=== PATIENT | male | born 1960 | race Caucasian/White ===

== ENCOUNTER 2017-07-05 07:26 | Inpatient (IN) | payer SELFPAY ==
[~2017-07-05] VITALS: Ht 175.3 cm; Wt 93.0 kg
[2017-07-05] VITALS (7 sets, daily range): BP systolic 98–129; BP diastolic 59–84
--- OUTSIDE RECORDS SUMMARY | 2017-07-05 07:31 | XMS REPORT ---
Author LILIYA Contreras [facility] eClinicalWorks Address Unknown Phone Unavailable Care Team Providers Care Boiler Engineer Name Role Phone LILIYA OLIVER CP Unavailable Allergies, Adverse Reactions, Alerts Substance Reaction Event Type N.K.D.A. Info Not Available Non Drug Allergy Problems Problem Type Condition Code Onset Dates Condition Status Problem Elevated blood sugar R73.09 Active Problem Excessive anger R45.4 Active Problem Neuropathy G62.9 Active Assessment Fatigue R53.83 Active Assessment Neuropathy G62.9 Active Problem Fatigue R53.83 Active Assessment Excessive anger R45.4 Active Medications Medication Code System Code Instructions Start Date End Date Status Dosage Gabapentin [facility] [address]-37 300 MG Orally at bedtime Jan 15, 2015 1 capsule Celexa [facility] [address]-12 20 MG Orally Once a day Jan 29, 2015 1 tablet Procedures Procedure Coding System Code Date Office Visit, Est Pt., Level 4 CPT-4 19097 Feb 26, 2015 Vital Signs Date/Time: Feb 26, 2015 Temperature 98.9 F Weight 205.6 lbs Height 70 in BMI 29.50 Index Blood Pressure Diastolic 80 mmHg Blood Pressure Systolic 150 mmHg Cardiac Monitoring Heart Rate 88 bpm Results No Known Results Summary Purpose eClinicalWorks Submission
--- OUTSIDE RECORDS SUMMARY | 2017-07-05 07:31 | XMS REPORT ---
Author Author LILIYA OLIVER Organization eClinicalWorks Address Unknown Phone Unavailable Care Team Providers Care Motion Graphics Designer Name Role Phone LILIYA OLIVER CP Unavailable Allergies No Known Allergies Problems Problem Type Condition ICD-9 Code Onset Dates Condition Status Problem Acute sinusitis, unspecified 461.9 Active Problem Cough 786.2 Active Problem Other malaise and fatigue 780.79 Active Assessment Elevated blood sugar 790.29 Active Problem Excessive anger 312.00 Active Problem Elevated blood pressure 796.2 Active Problem Depression 311 Active Problem Abdominal pain, generalized 789.07 Active Problem Open wound of knee, leg (except thigh), and ankle, without mention of complication 891.0 Active Problem Diarrhea 787.91 Active Problem Nausea with vomiting 787.01 Active Medications No Known Medications Results No Known Results Summary Purpose eClinicalWorks Submission
--- OUTSIDE RECORDS SUMMARY | 2017-07-05 07:31 | XMS REPORT ---
Author Author JEAN MARIE JOSEPH [facility] eClinicalWorks Address Unknown Phone Unavailable Care Team Providers Care Fill Plant Operator Name Role Phone JEAN MARIE JOSEPH CP Unavailable Allergies, Adverse Reactions, Alerts Substance Reaction Event Type N.K.D.A. Info Not Available Non Drug Allergy Problems Problem Type Condition Code Onset Dates Condition Status Problem Elevated blood sugar R73.09 Active Problem Excessive anger R45.4 Active Problem Neuropathy G62.9 Active Assessment Arm pain M79.603 Active Problem Fatigue R53.83 Active Assessment Allergy to poison janes Z91.09 Active Medications Medication Code System Code Instructions Start Date End Date Status Dosage Gabapentin [facility] [address]-98 300 MG Orally at bedtime Jan 15, 2015 1 capsule Procedures Procedure Coding System Code Date THER/PROPH/DIAG INJ, SC/IM CPT-4 77210 August 05, 2015 Office Visit, Est Pt., Level 3 CPT-4 40692 August 05, 2015 SOLUMEDROL (UP TO 125 MG) CPT-4 J2930 August 05, 2015 Vital Signs Date/Time: August 05, 2015 Temperature 97.8 F Weight 195.4 lbs Height 70 in BMI 28.03 Index Blood Pressure Diastolic 94 mmHg Blood Pressure Systolic 138 mmHg Cardiac Monitoring Heart Rate 84 bpm Results No Known Results Summary Purpose eClinicalWorks Submission
--- OUTSIDE RECORDS SUMMARY | 2017-07-05 07:31 | XMS REPORT ---
Author Author LILIYA OLIVER Organization [facility] Address [address] [place] [address] Care Team Providers Care Trouble Shooting Mechanic Name Role Phone LILIYA OLIVER Unavailable PROBLEMS Type Condition ICD9-CM Code BXY59-ZV Code Onset Dates Condition Status SNOMED Code Problem Fatigue R53.83 Active 43957350 Problem Excessive anger R45.4 Active 751213506 Problem Tension headache G44.209 Active 116189168 Problem Biceps muscle tear, right, subsequent encounter S46.111D Active 510781312 Problem Neuropathy G62.9 Active 761251555 Problem Elevated blood sugar R73.09 Active 68130593 Problem Other chronic pain G89.29 Active 31001925 Problem Pain in right shoulder M25.511 Active 97558428 ALLERGIES No Known Allergies SOCIAL HISTORY Never Assessed PLAN OF CARE Activity Details Follow Up 2 Weeks, prn Reason: Pending Test CBC VITAL SIGNS Height 70 in 2016-07-07 Weight 200.8 lbs 2016-07-07 Temperature 98.4 degrees Fahrenheit 2016-07-07 Heart Rate 92 bpm 2016-07-07 Respiratory Rate 22 2016-07-07 BMI 28.81 kg/m2 2016-07-07 Blood pressure systolic 114 mmHg 2016-07-07 Blood pressure diastolic 78 mmHg 2016-07-07 MEDICATIONS Medication Instructions Dosage Frequency Start Date End Date Duration Status Tamiflu 75 MG Orally Twice a day 1 capsule 12h Jun, 5 day(s) Active RESULTS Name Result Date Reference Range INFLUENZA A & B (IN HOUSE) 2016-07-07 INFLUENZA A Negative INFLUENZA B Positive Control + Lot # [id number] Exp date 2018-04-22 PROCEDURES Procedure Date Ordered Result Body Site INFLUENZA ASSAY W/OPTIC July 07, 2016 COMPLETE CBC W/AUTO DIFF WBC July 07, 2016 IMMUNIZATIONS No Known Immunizations MEDICAL (GENERAL) HISTORY Type Description Date Surgical History reattached middle finger on left hand Hospitalization History poison janes as a child
--- OUTSIDE RECORDS SUMMARY | 2017-07-05 07:31 | XMS REPORT ---
Author LILIYA Contreras Organization eClinicalWorks Address Unknown Phone Unavailable Care Team Providers Care Environmental Officer Name Role Phone LILIYA OLIVER CP Unavailable Allergies, Adverse Reactions, Alerts Substance Reaction Event Type N.K.D.A. Info Not Available Non Drug Allergy Problems Problem Type Condition Code Onset Dates Condition Status Problem Elevated blood sugar R73.09 Active Problem Excessive anger R45.4 Active Problem Neuropathy G62.9 Active Assessment Neuropathy G62.9 Active Assessment Excessive anger R45.4 Active Problem Fatigue R53.83 Active Assessment Biceps muscle tear S46.119A Active Medications Medication Code System Code Instructions Start Date End Date Status Dosage Tramadol HCl [facility] [address]-52 50 mg Orally every 6 hrs August 24, 2015 1 tablet as needed Celexa [facility] [address]-86 20 MG Orally Once a day Jan 29, 2015 1 tablet Gabapentin [facility] [address]-10 300 MG Orally at bedtime Jan 15, 2015 1 capsule Procedures Procedure Coding System Code Date Office Visit, Est Pt., Level 3 CPT-4 12822 August 24, 2015 Vital Signs Date/Time: August 24, 2015 Temperature 97.6 F Weight 193.2 lbs Height 70 in BMI 27.72 Index Blood Pressure Diastolic 94 mmHg Blood Pressure Systolic 120 mmHg Cardiac Monitoring Heart Rate 100 bpm Results No Known Results Summary Purpose eClinicalWorks Submission
--- OUTSIDE RECORDS SUMMARY | 2017-07-05 07:31 | XMS REPORT ---
Author LILIYA Contreras Organization eClinicalWorks Address Unknown Phone Unavailable Care Team Providers Care Carbide Grinder Name Role Phone LILIYA OLIVER CP Unavailable Allergies, Adverse Reactions, Alerts Substance Reaction Event Type N.K.D.A. Info Not Available Non Drug Allergy Problems Problem Type Condition ICD-9 Code Onset Dates Condition Status Problem Acute sinusitis, unspecified 461.9 Active Problem Cough 786.2 Active Problem Other malaise and fatigue 780.79 Active Problem Excessive anger 312.00 Active Problem Elevated blood pressure 796.2 Active Problem Depression 311 Active Problem Abdominal pain, generalized 789.07 Active Problem Open wound of knee, leg (except thigh), and ankle, without mention of complication 891.0 Active Problem Diarrhea 787.91 Active Problem Nausea with vomiting 787.01 Active Assessment Elevated blood pressure 796.2 Active Assessment Excessive anger 312.00 Active Assessment Depression 311 Active Assessment Other malaise and fatigue 780.79 Active Medications Medication Code System Code Instructions Start Date End Date Status Dosage Amitriptyline HCl [facility] [address]-64 50 MG Orally Once a day Jan 15, 2015 1 tablet Gabapentin [facility] [address]-00 300 MG Orally at bedtime Jan 15, 2015 1 capsule Procedures Procedure Coding System Code Date COMPREHEN METABOLIC PANEL CPT-4 12829 Jan 15, 2015 Office Visit, New Pt., Level 4 CPT-4 22071 Jan 15, 2015 COMPLETE CBC W/AUTO DIFF WBC CPT-4 29422 Jan 15, 2015 VENIPUNCT, ROUTINE* CPT-4 12308 Jan 15, 2015 Vital Signs Date/Time: Jan 15, 2015 Temperature 97.2 F Weight 200.9 lbs Height 70 in BMI 28.82 Index Blood Pressure Diastolic 98 mmHg Blood Pressure Systolic 150 mmHg Cardiac Monitoring Heart Rate 90 bpm Results Name Result Date Reference Range Unit Abnormality Flag ROUTINE VENIPUNCTURE CBC Summary Purpose eClinicalWorks Submission
--- OUTSIDE RECORDS SUMMARY | 2017-07-05 07:32 | XMS REPORT ---
Author LIILYA Contreras Organization eClinicalWorks Address Unknown Phone Unavailable Care Team Providers Care Carrier Associate Name Role Phone LILIYA OLIVER Unavailable Allergies No Known Allergies Problems Problem [...]
--- OUTSIDE RECORDS SUMMARY | 2017-07-05 07:32 | XMS REPORT ---
Author LILIYA Contreras [facility] eClinicalWorks Address Unknown Phone Unavailable Care Team Providers Care Maintenance Operator Name Role Phone LILIYA OLIVER CP Unavailable Allergies, Adverse Reactions, Alerts Substance Reaction Event Type N.K.D.A. Info Not Available Non Drug Allergy Problems Problem Type Condition Code Onset Dates Condition Status Assessment Bilious vomiting with nausea R11.14 Active Assessment Acute upper respiratory infection, unspecified J06.9 Active Assessment Other viral agents as the cause of diseases classified elsewhere B97.89 Active Assessment Diarrhea, unspecified type R19.7 Active Problem Pain in right shoulder M25.511 Active Problem Other chronic pain G89.29 Active Problem Biceps muscle tear, right, subsequent encounter S46.111D Active Problem Excessive anger R45.4 Active Problem Fatigue R53.83 Active Problem Neuropathy G62.9 Active Problem Elevated blood sugar R73.09 Active Medications Medication Code System Code Instructions Start Date End Date Status Dosage PredniSONE [facility] [address]-89 10 mg Orally twice a day Feb 02, 2016Jan 1 tablet Zofran [facility] [address]-60 4 MG Orally 3 times a day Feb 02, 2016 1 tablets Procedures Procedure Coding System Code Date Office Visit, Est Pt., Level 4 CPT-4 84705 Feb 02, 2016 Vital Signs Date/Time: Feb 02, 2016 Cardiac Monitoring Heart Rate 80 bpm Weight 216 lbs Height 70 in BMI 30.99 Index Blood Pressure Diastolic 80 mmHg Blood Pressure Systolic 146 mmHg Results No Known Results Summary Purpose eClinicalWorks Submission
--- OUTSIDE RECORDS SUMMARY | 2017-07-05 07:32 | XMS REPORT | Continuity of Care Document ---
Author Author [facility] Address Unknown Phone Unavailable Allergies Active Description Code Type Severity Reaction Onset Reported/Identified Relationship to Patient Clinical Status Yes No Known Drug Allergies [id number] Drug Allergy Unknown N/A 12/25/2012 Medications There is no data. Problems Date Dx Coded Attending Type Code Diagnosis Diagnosed By 12/25/2012 LORENZO KNIGHT, KRISHNA Orozco Ot 780.4 DIZZINESS AND GIDDINESS 10/05/2013 RICARDA NIETO APRN R 787.01 NAUSEA WITH VOMITING 10/05/2013 RICARDA NIETO APRN R 787.91 DIARRHEA 10/05/2013 JEAN MARIE JOSEPH APRN S 787.01 NAUSEA WITH VOMITING 10/05/2013 CAMPOS JOSEPH APRNA S 787.91 DIARRHEA 10/05/2013 787.01 NAUSEA WITH VOMITING 10/05/2013 787.91 DIARRHEA 10/05/2013 RAYNE NIETO APRNINA R 787.01 NAUSEA WITH VOMITING 10/05/2013 EMILIA BANKS RICARDA R 787.91 DIARRHEA 10/09/2013 JEAN MARIE JOSEPH APRN S 789.07 ABDOMINAL PAIN GENERALIZED 10/09/2013 789.07 ABDOMINAL PAIN GENERALIZED 10/09/2013 EMILIA BANKS RICARDA R 789.07 ABDOMINAL PAIN GENERALIZED 12/11/2013 891.0 OPEN WOUND OF KNEE LEG (EXCEPT THIGH) AND ANKLE WITHOUT COMPLICATION 12/11/2013 EMILIA BANKS RICARDA R 891.0 OPEN WOUND OF KNEE LEG (EXCEPT THIGH) AND ANKLE WITHOUT COMPLICATION 05/16/2014 RICARDA NIETO APRN R 461.9 SINUSITIS ACUTE 05/16/2014 RICARDA NIETO APRN R 780.79 FATIGUE 05/16/2014 RICARDA NIETO APRN R 786.2 COUGH 08/31/2015 LILIYA OLIVER Ot M67.922 UNSPECIFIED DISORDER OF SYNOVIUM AND TEN 09/07/2015 LILIYA OLIVER Ot M67.922 UNSPECIFIED DISORDER OF SYNOVIUM AND TEN Procedures Code [place] [address] ROUTINE VENIPUNCTURE 10/09/2013 64790 CMP 10/09/2013 7050624 GFR CALC (RESULT ONLY) 10/09/2013 87643 CBC 10/09/2013 76887 LIPASE 10/09/2013 Results There is no data. Encounters ACCT No. Visit Date/Time Discharge Status Pt. Type Provider Facility Loc./Unit Complaint [id number] 05/16/2014 15:47:00 05/16/2014 23:59:59 CLS Outpatient RICARDA NIETO APRN [id number] 10/09/2013 11:11:00 10/09/2013 23:59:59 CLS Outpatient JEAN MARIE JOSEPH APRN [id number] 10/05/2013 12:15:00 10/05/2013 23:59:59 CLS Outpatient RICARDA NIETO APRN [id number] 12/11/2013 11:52:00 Document Registration [id number] 08/28/2015 14:25:00 08/28/2015 23:59:59 CLS Outpatient LILIYA OLIVERP [facility] RAD [id number] 12/11/2013 13:26:00 12/11/2013 23:59:59 CLS Outpatient [id number] 12/25/2012 12:08:00 12/25/2012 15:50:00 DIS Emergency LORENZO KNIGHT, KRISHNA Orozco [facility] ER
[2017-07-05] MEDS ORDERED: NS IV 1000 ML 1,000 ML IV SCH ×2 (07:43→08:53)
[2017-07-05] MEDS ORDERED: RT-ALBUTEROL/IPRATROPIUM 3 ML (DUONEB) VIAL INH ONE (07:45)
[2017-07-05 08:12] LABS: BASOPHILS # (AUTO) 0.1 10^3/uL (0.0-0.1); BASOPHILS % (AUTO) 0 % (0-10); EOSINOPHILS % (AUTO) 0 % (0-10); HEMATOCRIT 39 % (40-54); HEMOGLOBIN 13.5 G/DL (13.3-17.7); LYMPHOCYTES # (AUTO) 2.2 X 10^3 (1.0-4.0); LYMPHOCYTES % (AUTO) 9 % (12-44); MEAN CORPUSCULAR HEMOGLOBIN 29 PG (25-34); MEAN CORPUSCULAR HGB CONC 35 G/DL (32-36); MEAN CORPUSCULAR VOLUME 85 FL (80-99); MEAN PLATELET VOLUME 9.7 FL (7.4-10.4); MONOCYTES # (AUTO) 1.3 X 10^3 (0.0-1.0); MONOCYTES % (AUTO) 5 % (0-12); NEUTROPHILS # (AUTO) 19.9 X 10^3 (1.8-7.8); NEUTROPHILS % (AUTO) 85 % (42-75); PLATELET COUNT 305 10^3/uL (130-400); RED BLOOD COUNT 4.59 10^6/uL (4.35-5.85); RED CELL DISTRIBUTION WIDTH 14.6 % (10.0-14.5); WHITE BLOOD COUNT 23.5 10^3/uL (4.3-11.0)
[2017-07-05 08:33] LABS: ALANINE AMINOTRANSFERASE 47 U/L (0-55); ALKALINE PHOSPHATASE 127 U/L (40-136); BILIRUBIN,TOTAL 0.9 MG/DL (0.1-1.0); BUN/CREATININE RATIO 16; CALCIUM 9.6 MG/DL (8.5-10.1); CARBON DIOXIDE 25 MMOL/L (21-32); CHLORIDE 101 MMOL/L (98-107); CREATININE SERUM 1.04 MG/DL (0.60-1.30); GFR ESTIMATED > 60; GLUCOSE 149 MG/DL (70-105); SODIUM 134 MMOL/L (135-145); TOTAL PROTEIN 6.9 GM/DL (6.4-8.2)
[2017-07-05 08:38] LABS: BAND NEUTROPHILS 19 %; BASOPHILS % (MANUAL) 0 %; EOSINOPHILS % (MANUAL) 0 %; LYMPHOCYTES % (MANUAL) 10 %; MONOCYTES % (MANUAL) 3 %; NEUTROPHILS % (MANUAL) 68 %; RBC MORPH NORMAL
--- NOTE | 2017-07-05 08:42 | ED General ---
General Chief Complaint: Cough/Cold/Flu Symptoms Stated Complaint: COUGH/N/V Nursing Triage Note: AMB TO ROOM REPORTS FOR 1 WEEK HAS HAD COUGH CONGESTION WITH BODY ACHES. Nursing Sepsis Screen: No Definite Risk Source of Information: Patient, Family Exam Limitations: No Limitations History of Present Illness Date Seen by Provider: Jul 05, 2017 Time Seen by Provider: 07:33 Initial Comments This 56-year-old gentleman presents to the emergency room with complaints of cough, shortness of breath, myalgias, vomiting, and chills for a week. Oral intake has been decreased. He typically smokes about 2 packs of cigarettes per day. He is a patient of the [facility]. He states he presently feels like he did during a previous episode of pneumonia. He has tried multiple ptdk-fip-kojiynp medications without much benefit. Allergies and Home Medications Allergies Coded Allergies: No Known Drug Allergies (Unverified , 12/25/12) Patient Home Medication List Home Medication List Reviewed: Yes Constitutional: see HPI EENTM: no symptoms reported Respiratory: see HPI Cardiovascular: no symptoms reported Gastrointestinal: see HPI Genitourinary: no symptoms reported Musculoskeletal: no symptoms reported Skin: no symptoms reported Psychiatric/Neurological: No Symptoms Reported Hematologic/Lymphatic: No Symptoms Reported Past Zeohjnl-Nciqzz-Fdqlfw Hx Patient Social History Alcohol Use: Denies Use Recreational Drug Use: No Smoking Status: Current Everyday Smoker Recent Foreign Travel: No Contact w/Someone Who Travel: No Recent Infectious Disease Expo: No Surgeries History of Surgeries: No Respiratory History of Respiratory Disorde: Yes (tobaccoism) Respiratory Disorders: Pneumonia Cardiovascular History of Cardiac Disorders: No Neurological History of Neurological Disord: No Reproductive System Hx Reproductive Disorders: No Gastrointestinal History of Gastrointestinal Di: No Musculoskeletal History of Musculoskeletal Dis: No Endocrine History of Endocrine Disorders: No HEENT History of HEENT Disorders: No Cancer History of Cancer: No Psychosocial History of Psychiatric Problem: Yes Behavioral Health Disorders: Anxiety Physical Exam-Suspected Sepsis Physical Exam Vital Signs Vital Signs - First Documented 07/05/17 07:30 Temp 95.5 Pulse 110 Resp 18 B/P (MAP) 123/97 (106) Pulse Ox 93 O2 Delivery Room Air Capillary Refill : Less Than 3 Seconds Blood Pressure Mean: 96 General Appearance: WD/WN, Mild Distress HEENT: PERRL/EOMI, TMs Normal, Normal ENT Inspection, Other (oropharynx somewhat dry) Neck: Normal Inspection Respiratory: No Accessory Muscle Use, No Respiratory Distress, Crackles ( bilateral bases, right greater than left), Wheezing, Other (decreased air movement) Cardiovascular: No Edema, No Murmur, Tachycardia Gastrointestinal: Normal Bowel Sounds, Non Tender, Soft Extremity: Normal Inspection, No Pedal Edema Neurologic/Psychiatric: Alert, Oriented x3, No Motor/Sensory Deficits, Normal Mood/Affect, back seam stitcher II-XII Norm as Tested Skin: normal color, warm/dry Focused Exam Evaluation Lactate Level Laboratory Tests 07/05/17 08:00: Lactic Acid Level 1.81 Lactic Acid Level Laboratory Tests Test 07/05/17 08:00 Lactic Acid Level 1.81 MMOL/L (0.50-2.00) Progress/Results/Core Measures Suspected Sepsis Recent Fever Within 48 Hours: No Infection Criteria Present: Suspected New Infection New/Unexplained Altered Menta: No Sepsis Screen: No Definite Risk Sepsis Diagnosis: SIRS Temperature:95.5 Pulse: 100 Respiratory Rate: 18 Laboratory Tests 07/05/17 08:00: White Blood Count 23.5H Blood Pressure 127 /80 Mean: 96 Laboratory Tests 07/05/17 08:00: Lactic Acid Level 1.81 Laboratory Tests 07/05/17 08:00: Creatinine 1.04, Platelet Count 305, Total Bilirubin 0.9 Results/Orders Lab Results Laboratory Tests Test 07/05/17 08:00 Range/Units White Blood Count 23.5 H 4.3-11.0 10^3/uL Red Blood Count 4.59 4.35-5.85 10^6/uL Hemoglobin 13.5 13.3-17.7 G/DL Hematocrit 39 L 40-54 % Mean Corpuscular Volume 85 80-99 FL Mean Corpuscular Hemoglobin 29 25-34 PG Mean Corpuscular Hemoglobin Concent 35 32-36 G/DL Red Cell Distribution Width 14.6 H 10.0-14.5 % Platelet Count 305 130-400 10^3/uL Mean Platelet Volume 9.7 7.4-10.4 FL Neutrophils (%) (Auto) 85 H 42-75 % Lymphocytes (%) (Auto) 9 L 12-44 % Monocytes (%) (Auto) 5 0-12 % Eosinophils (%) (Auto) 0 0-10 % Basophils (%) (Auto) 0 0-10 % Neutrophils # (Auto) 19.9 H 1.8-7.8 X 10^3 Lymphocytes # (Auto) 2.2 1.0-4.0 X 10^3 Monocytes # (Auto) 1.3 H 0.0-1.0 X 10^3 Eosinophils # (Auto) 0.0 0.0-0.3 10^3/uL Basophils # (Auto) 0.1 0.0-0.1 10^3/uL Neutrophils % (Manual) 68 % Lymphocytes % (Manual) 10 % Monocytes % (Manual) 3 % Eosinophils % (Manual) 0 % Basophils % (Manual) 0 % Band Neutrophils 19 % Blood Morphology Comment NORMAL Sodium Level 134 L 135-145 MMOL/L Potassium Level 4.0 3.6-5.0 MMOL/L Chloride Level 101 98-107 MMOL/L Carbon Dioxide Level 25 21-32 MMOL/L Anion Gap 8 5-14 MMOL/L Blood Urea Nitrogen 17 7-18 MG/DL Creatinine 1.04 0.60-1.30 MG/DL Estimat Glomerular Filtration Rate > 60 BUN/Creatinine Ratio 16 Glucose Level 149 H 70-105 MG/DL Lactic Acid Level 1.81 0.50-2.00 MMOL/L Calcium Level 9.6 8.5-10.1 MG/DL Total Bilirubin 0.9 0.1-1.0 MG/DL Aspartate Amino Transf (AST/SGOT) 25 5-34 U/L Alanine Aminotransferase (ALT/SGPT) 47 0-55 U/L Alkaline Phosphatase 127 40-136 U/L Total Protein 6.9 6.4-8.2 GM/DL Albumin 3.0 L 3.2-4.5 GM/DL Micro Results Microbiology 07/05/17 Influenza Types A,B Antigen (PRANEETH) - Final, Complete My Orders Orders - JOSE GARRETT MD Cbc With Automated Diff (07/05/17 07:43) Comprehensive Metabolic Panel (07/05/17 07:43) Blood Culture (07/05/17 07:43) Influenza A And B Antigens (07/05/17 07:43) Chest Pa/Lat (2 View) (07/05/17 07:43) Albuterol/Ipra Inhalation Soln (Duoneb I (07/05/17 07:45) Lactic Acid Analyzer (07/05/17 07:43) Svn Sm Volume Nebulizer Rt-Rfs (07/05/17 07:43) Saline Lock/Iv-Start (07/05/17 07:43) Ns Iv 1000 Ml (Sodium Chloride 0.9%) (07/05/17 07:43) Manual Differential (07/05/17 08:00) Ceftriaxone Injection (Rocephin Injectio (07/05/17 08:45) Ketorolac Injection (Toradol Injection) (07/05/17 08:45) Saline Lock/Iv-Start (07/05/17 08:53) Ns Iv 1000 Ml (Sodium Chloride 0.9%) (07/05/17 08:53) Medications Given in ED Current Medications Medications Dose Ordered Sig/Debby Route Start Time Stop Time Status Last Admin Dose Admin Albuterol/ Ipratropium 3 ml ONCE ONCE INH 07/05/17 07:45 07/05/17 07:48 DC 07/05/17 07:54 3 ML Ceftriaxone Sodium 1000 mg/ Sodium Chloride 100 ml @ 200 mls/hr ONCE ONCE IV 07/05/17 08:45 07/05/17 09:14 07/05/17 08:55 200 MLS/HR Ketorolac Tromethamine 30 mg ONCE ONCE IVP 07/05/17 08:45 07/05/17 08:46 DC 07/05/17 08:52 30 MG Vital Signs/I&O Vital Sign - Last 12Hours 07/05/17 07/05/17 07/05/17 07:30 07:54 08:39 Temp 95.5 Pulse 110 100 Resp 18 B/P (MAP) 123/97 (106) 127/80 Pulse Ox 93 92 100 O2 Delivery Room Air Room Air Nasal Cannula Capillary Refill : Less Than 3 Seconds Blood Pressure Mean: 96 Progress Note : Progress Note Patient was given a DuoNeb treatment. Chest x-ray revealed right-sided pneumonia. Patient meets sepsis criteria with tachycardia and leukocytosis. He was started on Rocephin after blood cultures and lactic acid were drawn. 2 L of normal saline were infused in the ER. Diagnostic Imaging Diagonstic Imaging: Xray Plain Films/CT/US/NM/MRI: chest Comments Chest x-ray viewed by me and report reviewed. See report below: NAME: BRINDA WOOPRAVEEN Quiros [facility] REC#: [id number] PT STATUS: REG ER : 1960 PHYSICIAN: JOSE GARRETT MD ADMIT DATE: 07/05/17/ER Draft Date of Exam:07/05/17 CHEST PA/LAT (2 VIEW) Indication: Cough, fever and chills. Time of exam: 8:45 AM Comparison: No prior studies are available for comparison. Findings: The heart size is normal. There is airspace infiltrate in the right perihilar region as well as the right lung base consistent with pneumonia. The left lung is clear. The vascularity is normal. No effusion is detected. There is no pneumothorax. Impression: Right perihilar and right basilar pneumonia. Dictated on workstation # [id number] Dict: 07/05/17 0844 Trans: 07/05/17 0846 CVB [id number] Interpreted by: VEDA FLORES MD Departure Communication (Admissions) Time/Spoke to Admitting Phy: 08:[address] Gayla Cifuentes Impression Impression: Primary Impression: Sepsis Qualified Codes: A41.9 - Sepsis, unspecified organism Additional Impressions: Right lower lobe pneumonia Qualified Codes: J18.1 - Lobar pneumonia, unspecified organism Bronchospasm Disposition: ADMITTED INPATIENT Condition: Improved Admissions Decision to Admit Reason: Admit from ER (General) Decision to Admit/Date: Jul 05, 2017 Time/Decision to Admit Time: 08:35 Departure-Patient Inst. Referrals: MOOK EMERY DO (PCP) Primary Care Physician LILIYA OLIVER (Family) Primary Care Physician JOSE GARRETT MD Jul 05, 2017 08:42
[2017-07-05] MEDS ORDERED: KETOROLAC 30 MG/ML VIAL IVP ONE (08:45)
[2017-07-05] MEDS ORDERED: cefTRIAXone INJECTION 1,000 MG in NS (IVPB) 100 ML IV ONE (08:45)
--- NOTE | 2017-07-05 08:47 | Diagnostic Imaging Report ---
Indication: Cough, fever and chills. Time of exam: 8:45 AM Comparison: No prior studies are available for comparison. Findings: The heart size is normal. There is airspace infiltrate in the right perihilar region as well as the right lung base consistent with pneumonia. The left lung is clear. The vascularity is normal. No effusion is detected. There is no pneumothorax. Impression: Right perihilar and right basilar pneumonia. Dictated by: Dictated on workstation # [id number]
--- OUTSIDE RECORDS SUMMARY | 2017-07-05 10:54 | XMS REPORT | Continuity of Care Document ---
Author Author [facility] Address Unknown Phone Unavailable Allergies Active Description Code Type Severity Reaction Onset Reported/Identified Relationship to Patient Clinical Status Yes No Known Drug Allergies [id number] Drug Allergy Unknown N/A 12/25/2012 Medications There [...] Procedures Code [place] [address] ROUTINE VENIPUNCTURE 10/09/2013 65212 CMP 10/09/2013 [id number] GFR CALC (RESULT ONLY) 10/09/2013 32741 CBC 10/09/2013 08759 LIPASE 10/09/2013 Results There is no data. Encounters ACCT No. Visit Date/Time Discharge Status Pt. Type Provider Facility Loc./Unit Complaint [id number] 05/16/2014 15:47:00 05/16/2014 23:59:59 CLS Outpatient RICARDA NIETO APRN [id number] 10/09/2013 11:11:00 10/09/2013 23:59:59 CLS Outpatient JEAN MARIE JOSEPH APRN [id number] 10/05/2013 12:15:00 10/05/2013 23:59:59 CLS Outpatient RICARDA NIETO APRN [id number] 12/11/2013 11:52:00 Document Registration [id number] 08/28/2015 14:25:00 08/28/2015 23:59:59 CLS Outpatient LILIYA OLIVERP [facility] RAD [id number] 12/11/2013 13:26:00 12/11/2013 23:59:59 CLS Outpatient [id number] 12/25/2012 12:08:00 12/25/2012 15:50:00 DIS Emergency LORENZO KNIGHT, KRISHNA Orozco [facility] ER
[2017-07-05] MEDS ORDERED: AZITHROMYCIN 500 MG/NS 250 ML IVPB IV NR ×2 (11:29)
[2017-07-05] MEDS ORDERED: NICOTINE 21 MG (NICODERM) PATCH TD PRN (11:30)
[2017-07-05] MEDS ORDERED: RT-ALBUTEROL SULF 2.5 MG/3 ML PRE-MIX VIAL INH PRN (11:45)
[2017-07-05] MEDS: NS IV 1000 ML 1,000 ML IV SCH ×2 (11:50→21:22)
[2017-07-05] MEDS ORDERED: INFLUENZA TRIvalent 2017-2018 0.5 ML/45 MCG SYR IM ONE (13:30)
[2017-07-05] MEDS: ACETAMINOPHEN 500 MG TAB (TYLENOL) PO PRN ×2 (14:28→22:15)
--- NOTE | 2017-07-05 14:46 | History & Physicial (CHS) ---
HPI History of Present Illness: 56 yo gentleman presented to ER with complaints of shortness of breath worsening over the past week. Patient states that his SOB worsened to the extent that he was unable to walk across [facility] room without coughing and gasping for air. He is a long-term heavy smoker - smokes about 2 packs per day. He last saw Rosalinda Wall at the clinic for his primary care but hasn't been there for a check up lately. He has used inhalers in bryn past but did not use them this time. He has had associated weakness and myalgias, denies fevers, denies sputum production. No runny nose or upper respiratory symptoms. 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 Source: patient Exam Limitations: no limitations Date seen by provider: Jul 05, 2017 Time Seen by Provider: 10:00 Attending Physician Harrison Cifuentes MD PCP Consuelo Conley DO Consult Date of Admission Jul 05, 2017 at 8:55 am Home Medications Home Medications Reviewed patient Home Medication Reconciliation Form Allergies Coded Allergies: No Known Drug Allergies (Unverified , 12/25/12) ZLS-Dhrvmo-Yyocnr Hx Patient Social History Alcohol Use: Denies Use Recreational Drug Use: No Smoking Status: Current Everyday Smoker Type Used: Cigarettes Recent Foreign Travel: No Contact w/other who traveled: No Recent Infectious Disease Expo: No Physical Abuse Screen: No Sexual Abuse: No Review of Systems (CHC) Constitutional: no symptoms reported All Other Systems Reviewed Negative Unless Noted: Yes Physical Exam-(CHC) Physical Exam Vital Signs VS - Last 72 Hours, by Label 07/05/17 07/05/17 07/05/17 07/05/17 11:00 11:05 11:20 12:00 Temp 97.9 99.0 Pulse 95 85 101 Resp 20 18 20 B/P (MAP) 109/65 (80) 119/77 118/76 (90) Pulse Ox 98 95 97 O2 Delivery Nasal Cannula Room Air Nasal Cannula Nasal Cannula O2 Flow Rate 2.00 2.00 2.00 07/05/17 07/05/17 07/05/17 07/05/17 13:00 14:00 15:00 15:10 Temp 99.1 99.0 99.0 Pulse 105 107 Resp 18 18 B/P (MAP) 102/59 (73) 98/60 (73) Pulse Ox 95 94 92 O2 Delivery Nasal Cannula Nasal Cannula Room Air O2 Flow Rate 2.00 2.00 07/05/17 07/05/17 07/05/17 07/05/17 16:00 18:41 20:04 21:00 Temp 98.8 98.9 Pulse 104 94 Resp 20 18 B/P (MAP) 108/60 (76) 115/66 (82) Pulse Ox 94 94 95 O2 Delivery Nasal Cannula Room Air Nasal Cannula Room Air O2 Flow Rate 2.00 2.00 07/05/17 07/06/17 07/06/17 07/06/17 22:27 00:51 04:03 07:57 Temp 98.3 98.0 Pulse 88 87 Resp 19 17 B/P (MAP) 131/73 (92) 134/71 (92) Pulse Ox 95 94 95 O2 Delivery Room Air Nasal Cannula Nasal Cannula Room Air O2 Flow Rate 2.00 2.00 07/06/17 07/06/17 09:00 14:32 Temp 96.9 Pulse 94 Resp 18 B/P (MAP) 144/88 (106) Pulse Ox 95 O2 Delivery Room Air Room Air Capillary Refill : Less Than 3 Seconds General Appearance: WD/WN, mild distress (gasping for air when talking) HEENT: PERRL/EOMI, normal ENT inspection, pharynx normal Respiratory: chest non-tender, respiratory distress, decreased breath sounds, accessory muscle use, rhonchi, wheezing, expiration, inspiration Cardiovascular: regular rate, rhythm, no edema, no gallop, no JVD, no murmur Gastrointestinal: normal bowel sounds, non tender, soft, no organomegaly, no pulsatile mass Back: normal inspection, no CVA tenderness, no vertebral tenderness Extremities: normal range of motion, non-tender, normal inspection, no pedal edema, no calf tenderness, normal capillary refill 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 Assessment & Plan ACUTE BACTERIAL EXACERBATION OF CHRONIC BRONCHITIS RIGHT-SIDED PNEUMONIA SEPSIS HYPOXIA TOBACCO ABUSE ADMISSION: Patient will be admitted to the 4th floor and receive IV antibiotics , solumedrol, MAT protocol with aggressive pulmonary toilet, and oxygen. I did educate him that his cigarette use has played a large role in how sick he is today. We will monitor his vitals over bryn next 24h to see what measures we can wean based on his progress. I also encouraged early ambulation as tolerated. Clinical Quality Measures DVT/VTE Risk/Contraindication: Risk Factor Score Per Nursin RFS Level Per Nursing on Admit: 2=Moderate Copy Copies To 1: HARRISON FIELDS APRN, MD Jul 05, 2017 14:46
[2017-07-05] MEDS: RT-ALBUTEROL/IPRATROPIUM 3 ML (DUONEB) VIAL INH SCH ×3 (15:10→22:26)
[2017-07-06 00:51] VITALS: BP 131/73
[2017-07-06] MEDS: RT-ALBUTEROL/IPRATROPIUM 3 ML (DUONEB) VIAL INH SCH ×3 (02:00→11:44)
[2017-07-06 04:03] VITALS: BP 134/71
[2017-07-06] MEDS: NS IV 1000 ML 1,000 ML IV SCH ×2 (04:12→08:25)
[2017-07-06] MEDS: ACETAMINOPHEN 500 MG TAB (TYLENOL) PO PRN (08:26)
[2017-07-06] MEDS ORDERED: AZITHROMYCIN 250 MG TAB (ZITHROMAX) PO SCH (09:00)
[2017-07-06] MEDS ORDERED: cefTRIAXone 1 GM/NS 100 ML IVPB IV SCH ×2 (09:00)
[2017-07-06] MEDS ORDERED: MELA5CAP PO (10:19)
[2017-07-06] MEDS ORDERED: NAPR220T66 PO (10:19)
[2017-07-06 11:21] LABS: BASOPHILS # (AUTO) 0.1 10^3/uL (0.0-0.1); BASOPHILS % (AUTO) 0 % (0-10); EOSINOPHILS # (AUTO) 0.1 10^3/uL (0.0-0.3); EOSINOPHILS % (AUTO) 1 % (0-10); HEMATOCRIT 35 % (40-54); HEMOGLOBIN 11.9 G/DL (13.3-17.7); LYMPHOCYTES # (AUTO) 2.2 X 10^3 (1.0-4.0); LYMPHOCYTES % (AUTO) 13 % (12-44); MEAN CORPUSCULAR HEMOGLOBIN 30 PG (25-34); MEAN CORPUSCULAR HGB CONC 34 G/DL (32-36); MEAN CORPUSCULAR VOLUME 86 FL (80-99); MEAN PLATELET VOLUME 9.6 FL (7.4-10.4); MONOCYTES # (AUTO) 0.8 X 10^3 (0.0-1.0); MONOCYTES % (AUTO) 5 % (0-12); NEUTROPHILS # (AUTO) 13.4 X 10^3 (1.8-7.8); NEUTROPHILS % (AUTO) 81 % (42-75); PLATELET COUNT 305 10^3/uL (130-400); RED BLOOD COUNT 4.03 10^6/uL (4.35-5.85); WHITE BLOOD COUNT 16.6 10^3/uL (4.3-11.0)
[2017-07-06 11:47] LABS: BUN/CREATININE RATIO 18; CALCIUM 8.3 MG/DL (8.5-10.1); CARBON DIOXIDE 23 MMOL/L (21-32); CHLORIDE 109 MMOL/L (98-107); CREATININE SERUM 0.77 MG/DL (0.60-1.30); GFR ESTIMATED > 60; GLUCOSE 246 MG/DL (70-105); POTASSIUM 4.2 MMOL/L (3.6-5.0); SODIUM 138 MMOL/L (135-145)
[2017-07-06 11:51] LABS: NEUTROPHILS % (MANUAL) 72 %
[2017-07-06 11:52] LABS: ANISOCYTOSIS SLIGHT; BAND NEUTROPHILS 7 %; BASOPHILS % (MANUAL) 0 %; ELLIPT/OVALOCYTES SLIGHT; EOSINOPHILS % (MANUAL) 0 %; LYMPHOCYTES % (MANUAL) 18 %; MONOCYTES % (MANUAL) 1 %; POIKILOCYTOSIS SLIGHT; REACTIVE LYMPHOCYTES 2 %; STOMATOCYTES SLIGHT; TARGET CELLS SLIGHT
[2017-07-06 11:53] LABS: PLATELET CLUMPS SLIGHT; ROULEAUX SLIGHT; TOXIC GRANULATION/VACUOLAZATIO 2+
[2017-07-06] MEDS ORDERED: PRD20T PO (12:19)
[2017-07-06] MEDS ORDERED: AZIT250T12 PO (12:19)
[2017-07-06] MEDS ORDERED: IPRA3AMP INH (12:19)
[2017-07-06] MEDS ORDERED: CEFP200T2 PO (12:19)
--- NOTE | 2017-07-06 12:26 | Discharge Instructions ---
Discharge [facility] Discharge Medications New, Converted or Re-Newed RX: Transmitted to Pharmacy New Medications: Cefpodoxime Proxetil (Cefpodoxime Proxetil) 200 Mg Tablet 200 MG PO BID for 7 Days, #14 TAB 0 Refills Prednisone (Prednisone) 20 Mg Tab 20 MG PO DAILY, #11 TAB Take 3 tabs(60mg)daily, decrease by 1/2 tab(10mg)daily. Azithromycin (Azithromycin) 250 Mg Tablet 250 MG PO DAILY, #3 TAB 0 Refills Ipratropium/Albuterol Sulfate (Iprat-Albut 0.5-3(2.5) mg/3 ml) 3 Ml Ampul.neb 3 ML INH QID, #30 VIAL 0 Refills Continued Medications: Melatonin (Melatonin) 5 Mg Capsule 5 MG PO HS PRN for SLEEP, CAP Naproxen Sodium (Aleve) 220 Mg Tablet 440 MG PO Q8H PRN for PAIN-MILD, TAB Patient Instructions Goal/Follow Up Appt: PLEASE FOLLOW UP WITH ZINA REY ON JULY 07 AT 11:40 Patient Instructions: YOU WILL SEE ZINA TOMORROW TO MAKE SURE YOUR [facility]. YOU WILL SEE HER LATER THIS MONTH TO FORMALLY ESTABLISH CARE AND DISCUSS YOUR OTHER MEDICAL ISSUES. PLEASE USE KEN NEBULIZER FOUR TIMES PER DAY FOR AT LEAST 1 WEEK, THEN YOU CAN DECREASE BY ONE TREATMENT PER DAY. Return to The Hospital For: INCREASING SHORTNESS OF BREATH, FEVER Activity & Diet Discharge Diet: No Restrictions Activity as Tolerated: Yes Orders-Post D/C & Referrals Pneu Vac Indicated: Yes Copy Copies To 1: HARRISON FIELDS APRN, MD Jul 06, 2017 12:26 pm
[2017-07-06] MEDS ORDERED: NEBU1KIT3 MC (12:29)
[2017-07-06 14:32] VITALS: BP 144/88
--- NOTE | 2017-07-07 07:53 | Physician Query Clarification ---
PQ-Further Specificity Admission/Discharge Admission Date: Jul 05, 2017 at 08:55 Discharge Date: Jul 06, 2017 at 14:39 The medical record reflects the following clinical scenario: History/Risk Factors: Pneumonia, smoker Clinical Findings: T95.5, P110, R18, WBC 23.5, Bands 19, Lactic 1.81, congestion, myalgias, vomiting, chills Treatment: IV Ceftriazone, IV Azithromycin Question: Can you clarify if patient had sepsis or just pneumonia per the clinical indicators above? Please document below. 1. Pneumonia only 2. Sepsis with pneumonia 3. Other, with explanation of the clinical findings. 4. Clinically undetermined, no explanation for the clinical findings. PHYSICIAN RESPONSE Can you specify per above: 2 In responding to this query, please exercise your independent professional judgment. The purpose of this communication is to more accurately reflect the complexity of your patients condition. The fact that a question is asked does not imply that any particular answer is desired or expected. Thank you for your timely response to this clarification. Requestors name: Nataly THIS PHYSICIAN QUERY FORM IS A PERMANENT PART OF THE MEDICAL RECORD NATALY HERMOSILLO Jul 07, 2017 07:53 HARRISON AGUILERA MD Jul 08, 2017 09:48
--- NOTE | 2017-07-08 09:44 | Discharge Summary ---
Diagnosis/Chief Complaint Date of Admission Jul 05, 2017 at 08:55 Date of Discharge Jul 06, 2017 at 14:39 Admission Diagnosis Admission Diagnosis KINDLY SEE BELOW Discharge Diagnosis ACUTE BACTERIAL EXACERBATION OF CHRONIC BRONCHITIS RIGHT-SIDED PNEUMONIA SEPSIS HYPOXIA TOBACCO ABUSE ADMISSION: Patient will be admitted to the 4th floor and receive IV antibiotics , solumedrol, MAT protocol with aggressive pulmonary toilet, and oxygen. I did educate him that his cigarette use has played a large role in how sick he is today. We will monitor his vitals over bryn next 24h to see what measures we can wean based on his progress. I also encouraged early ambulation as tolerated. DISCHARGE: On the day after admission, patient no longer required oxygen supplementation. he was up walking the halls with no respiratory distress. He and his were asking to go home. I will discharge him on cefpodoxime, azithromycin, and a steroid taper. He will also take duonebs QID until he sees Jacek Singh in the office tomorrow. He should discuss detention COPD with her at that time in addition to smoking cessation. We further discussed that he should be home from work for a week before returning. Chief Complaint/HPI Chief Complaint/HPI 56 yo gentleman presented to ER with complaints of shortness of breath worsening over the past week. Patient states that his SOB worsened to the extent that he was unable to walk across [facility] room without coughing and gasping for air. He is a long-term heavy smoker - smokes about 2 packs per day. He last saw Rosalinda Wall at the clinic for his primary care but hasn't been there for a check up lately. He has used inhalers in bryn past but did not use them this time. He has had associated weakness and myalgias, denies fevers, denies sputum production. No runny nose or upper respiratory symptoms. 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 Discharge Summary-Simple/Stand Consultations Discharge Physical Examination Allergies: Coded Allergies: No Known Drug Allergies (Unverified , 12/25/12) Vitals & I&Os Vital Sign - Last 12Hours Date Time Temp Pulse Resp B/P (MAP) Pulse Ox O2 Delivery O2 Flow Rate FiO2 07/06/17 14:32 96.9 94 18 144/88 (106) 95 Room Air 07/06/17 04:03 2.00 General Appearance: Alert, Oriented X3, Cooperative, No Acute Distress Respiratory: Clear to Auscultation, Normal Air Movement Cardiovascular: Regular Rate, Normal S1, Normal S2, No Murmurs, Gallops, Rubs Abdominal: Normal Bowel Sounds, Soft, No Tenderness, No Hepatosplenomegaly, No Masses Extremities: No Clubbing, No Cyanosis, No Edema Neuro: Normal Gait, Normal Speech Psych/Mental Status: Mental Status NL, Mood NL Hospital Course See final discharge diagnosis. Discharge Instructions to patient/family Please see electronic discharge instructions given to patient. Discharge Medications Reviewed and agree with Discharge Medication list on patient's Discharge Instruction sheet Clinical Quality Measures DVT/VTE Risk/Contraindication: Risk Factor Score Per Nursin RFS Level Per Nursing on Admit: 2=Moderate Copy Copies To 1: HARRISON FIELDS APRN, MD Jul 08, 2017 09:44
== END 2017-07-06 14:39 | disposition home or self-care (01) | DRG 871 ==
LOC: EDUNIT# 07:26 → ER 07:28 → 4TH 08:55
PROVIDERS: ADMIT Pediatrics; ATTEND Pediatrics
DX: A41.9 Sepsis, unspecified organism (principal); J18.9 Pneumonia, unspecified organism; F17.210 Nicotine dependence, cigarettes, uncomplicated
CPT/HCPCS: 36415; 71046; 80048; 80053; 83605; 85007; 85027; 87040; 87804; 94640; 94760; 96361; 96365; 96375

== ENCOUNTER → 2017-07-18 | Outpatient (CLI) | payer SELFPAY ==
[~2017-07-18] MED LIST: AZIT250T12 PO; CEFP200T2 PO; IPRA3AMP INH; MELA5CAP PO; NAPR220T66 PO; NEBU1KIT3 MC; PRD20T PO
--- NOTE | 2017-07-18 17:42 | Diagnostic Imaging Report ---
INDICATION: Increasing shortness of breath. TIME OF EXAM: 05:54 p.m. Correlation is made with prior study from 07/05/2017. FINDINGS: Heart size is stable. A moderate right-sided pleural effusion has developed since the prior study. There is some associated right basilar atelectasis. Left lung is clear. No pneumothorax is seen. IMPRESSION: Development of moderate right-sided pleural effusion when compared with the examination from 07/05/2017. Dictated by: Dictated on workstation # [id number]
== END ==
LOC: RAD 17:22
PROVIDERS: ATTEND Physician Assistant
DX: J90 Pleural effusion, not elsewhere classified (principal); J18.1 Lobar pneumonia, unspecified organism
CPT/HCPCS: 71046

== ENCOUNTER 2017-07-20 12:11 | Observation (INO) | payer SELFPAY ==
[~2017-07-20] VITALS: Ht 175.3 cm; Wt 93.0 kg
[2017-07-20 12:35] VITALS: BP 118/81
[2017-07-20] MEDS ORDERED: TRAZ-28 PO (13:53)
[2017-07-20] MEDS ORDERED: IPRA3AMP NEB (13:53)
[2017-07-20] MEDS ORDERED: CEFP200T2 PO (13:53)
[2017-07-20] MEDS ORDERED: AZIT250T12 PO (13:53)
[2017-07-20 14:20] LABS: INR 0.9 (0.8-1.4); PROTHROMBIN TIME PATIENT 12.7 SEC (12.2-14.7)
[2017-07-20 14:29] LABS: ALANINE AMINOTRANSFERASE 25 U/L (0-55); ALBUMIN 3.3 GM/DL (3.2-4.5); ALKALINE PHOSPHATASE 81 U/L (40-136); BILIRUBIN,TOTAL 0.5 MG/DL (0.1-1.0); BUN/CREATININE RATIO 13; CALCIUM 9.4 MG/DL (8.5-10.1); CARBON DIOXIDE 25 MMOL/L (21-32); CHLORIDE 105 MMOL/L (98-107); CREATININE SERUM 0.77 MG/DL (0.60-1.30); GFR ESTIMATED > 60; GLUCOSE 92 MG/DL (70-105); MAGNESIUM 1.8 MG/DL (1.8-2.4); POTASSIUM 4.2 MMOL/L (3.6-5.0); SODIUM 137 MMOL/L (135-145); TOTAL PROTEIN 6.9 GM/DL (6.4-8.2)
[2017-07-20] MEDS ORDERED: INFLUENZA TRIvalent 2017-2018 0.5 ML/45 MCG SYR IM ONE (14:30)
[2017-07-20] MEDS ORDERED: NS 250 ML (IVPB) BAG IV ONE (14:45)
[2017-07-20] MEDS ORDERED: IOHEXOL 350 MG/ML 100 ML (OMNIPAQUE 350) VIAL IV ONE (14:45)
--- NOTE | 2017-07-20 15:31 | Diagnostic Imaging Report ---
INDICATION: Post thoracentesis. TECHNIQUE: Frontal chest obtained at 3:38 p.m. and compared to 07/18/2017. FINDINGS: Heart is normal in size. There is decreased right pleural fluid compared to the prior study with no pneumothorax following thoracentesis. There is persistent infiltrate or atelectasis in the right base. IMPRESSION: Decreased right pleural fluid compared to the prior study with no pneumothorax following thoracentesis. Persistent atelectatic change and/or infiltrate in the right lung base. Dictated by: Dictated on workstation # [id number]
--- NOTE | 2017-07-20 15:50 | Consultation ---
History of Present Illness History of Present Illness Patient Consulted On(dean/time) 07/20/17 15:36 Date Seen by Provider: Jul 20, 2017 Time Seen by Provider: 14:33 History of Present Illness consult requested by Dr. Oconnell for symptomatic right pleural effusion. Patient is a 56 year old male who was recently admitted for pneumonia. He has been sick for about 2.5 weeks. Last couple days he has increasing shortness of breath and was seen at [facility] and directly admitted. Has hard time catching breath and activity makes worse. Nothing making better. 40 pk year smoker. Denies n/v fever sweats chills or chest pain. Chest x ray demonstrating right pleural effusion. Allergies and Home Medications Allergies Coded Allergies: No Known Drug Allergies (Unverified , 12/25/12) Home Medications Azithromycin 250 Mg Tablet, 250 MG PO UD, (Reported) TAKE 2 TABLETS ON DAY ONE THEN TAKE 1 TABLET DAILY FOR FOUR MORE DAYS FILLED 07-18-17 Cefpodoxime Proxetil 200 Mg Tablet, 200 MG PO Q12H, (Reported) 14 DAY THERAPY FILLED 07-18-17 Ipratropium/Albuterol Sulfate 3 Ml Ampul.neb, 3 ML NEB QID, (Reported) Melatonin 5 Mg Capsule, 5 MG PO HS PRN for SLEEP, (Reported) Naproxen Sodium 220 Mg Tablet, 440 MG PO Q8H PRN for PAIN-MILD, (Reported) Trazodone HCl 50 Mg Tablet, 50 MG PO HS, (Reported) Patient Home Medication List Home Medication List Reviewed: Yes Past Zurzeaj-Kznnqh-Icstkc Hx Patient Social History Alcohol Use: Occasionally Uses Recreational Drug Use: Yes Drug of Choice: MARIJUANA ONCE IN A GREAT WHILE Smoking Status: Current Everyday Smoker Type Used: Cigarettes Recent Foreign Travel: No Contact w/Someone Who Travel: No Recent Infectious Disease Expo: No Recent Hopitalizations: Yes Physical Abuse Screen: No Sexual Abuse: No Immunizations Up To Date PED Vaccines UTD: No Seasonal Allergies Seasonal Allergies: No Surgeries History of Surgeries: No Respiratory History of Respiratory Disorde: Yes (tobaccoism) Respiratory Disorders: Pneumonia Cardiovascular History of Cardiac Disorders: No Neurological History of Neurological Disord: No Reproductive System Hx Reproductive Disorders: No Genitourinary History of Genitourinary Disor: No Gastrointestinal History of Gastrointestinal Di: No Musculoskeletal History of Musculoskeletal Dis: No Endocrine History of Endocrine Disorders: No HEENT History of HEENT Disorders: No Cancer History of Cancer: No Psychosocial History of Psychiatric Problem: Yes Behavioral Health Disorders: Anxiety Integumentary History of Skin or Integumenta: No Blood Transfusions History of Blood Disorders: No Adverse Reaction to a Blood Tr: No Family Medical History Significant Family History: No Pertinent Family Hx Family Medial History: Cardiovascular disease 19 FATHER Respiratory disorder G8 SISTER Review of Systems-General Constitutional: see HPI EENTM: no symptoms reported Respiratory: see HPI Cardiovascular: no symptoms reported Gastrointestinal: no symptoms reported Genitourinary: no symptoms reported Musculoskeletal: no symptoms reported Skin: no symptoms reported Psychiatric/Neurological: No Symptoms Reported Physical Exam-General Problems Physical Exam Vital Signs Vital Signs - First Documented 07/20/17 12:35 Temp 98.4 Pulse 108 Resp 22 B/P (MAP) 118/81 (93) Pulse Ox 94 O2 Delivery Room Air Capillary Refill : General Appearance: no apparent distress HEENT: PERRL/EOMI, normal ENT inspection Neck: supple Respiratory: other (decreased air movement right chest) Cardiovascular: regular rate, rhythm Gastrointestinal: non tender, soft, no organomegaly Rectal: deferred Back: normal inspection (dullness with percussion on right) Extremities: normal inspection 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, no motor/sensory deficits, alert, normal mood/affect, oriented x 3 Skin: normal color, warm/dry Lymphatic: no adenopathy Data Review Labs Laboratory Tests 07/20/17 13:45: Prothrombin Time 12.7, INR Comment 0.9, Sodium Level 137, Potassium Level 4.2, Chloride Level 105, Carbon Dioxide Level 25, Anion Gap 7, Blood Urea Nitrogen 10 , Creatinine 0.77, Estimat Glomerular Filtration Rate > 60, BUN/Creatinine Ratio 13, Glucose Level 92, Lactic Acid Level 0.80, Calcium Level 9.4, Magnesium Level 1.8, Total Bilirubin 0.5, Aspartate Amino Transf (AST/SGOT) 13, Alanine Aminotransferase (ALT/SGPT) 25, Alkaline Phosphatase 81, C-Reactive Protein High Sensitivity 11.21H, B-Type Natriuretic Peptide 10.5, Total Protein 6.9, Albumin 3.3 07/20/17 15:00: Assessment/Plan Assessment/Plan Assessment/Plan symptomatic right pleural effusion shortness of air history of pneumonia tobaccoism patient with right pleural effusion we discussed u/s guided thoracentesis right which he agrees with he understands risks and benefits. ct scan of the chest ordered as well discussed smoking cessation Clinical Quality Measures DVT/VTE Risk/Contraindication: Risk Factor Score Per Nursin RFS Level Per Nursing on Admit: 2=Moderate TOÑA TEE DO Jul 20, 2017 15:50
[2017-07-20 16:00] VITALS: BP 135/82
--- NOTE | 2017-07-20 16:01 | Progress Note-Post Operative ---
Post-Operative Progess Note Surgeon (s)/Coil Tester (s) Surgeon TOÑA TEE DO Coil Tester: na Pre-Operative Diagnosis symptomatic right pleural effusion Post-Operative Diagnosis same Procedure & Operative Findings Date of Procedure 07/20/17 Procedure Performed/Findings u/s guided right thoracentesis Anesthesia Type local 1 % Estimated Blood Loss Estimated blood loss (mL): min Specimens/Packing Specimens Removed right pleural fluid TOÑA TEE DO Jul 20, 2017 16:01
[2017-07-20 16:02] LABS: GLUCOSE,BODY FLUID 140 MG/DL; LDH,BODY FLUID 407 U/L
[2017-07-20 16:03] LABS: BODY FLUID SOURCE THORACEN
--- NOTE | 2017-07-20 16:07 | Diagnostic Imaging Report ---
INDICATION: Right pleural effusion. EXAMINATION: Ultrasound guidance was provided for Dr. Barrow for a right-sided thoracentesis. FINDINGS: A single image demonstrates a large amount of pleural fluid on the right. IMPRESSION: Ultrasound guidance for right-sided thoracentesis performed by Dr. Barrow. Dictated by: Dictated on workstation # [id number]
--- NOTE | 2017-07-20 16:22 | Diagnostic Imaging Report ---
INDICATION: Pneumonia and shortness of breath, recent thoracentesis. EXAMINATION: CT chest was obtained pre and post IV contrast. There is no prior chest CT for comparison. FINDINGS: There is a dense consolidation in the right lower lobe suspicious for pneumonia. There is a small amount pleural fluid on the right side which does not show definitive loculation. There are a few minimal nodes in the mediastinum which are not of pathologic size. There are no enlarged hilar nodes. There is no left pleural effusion. There is no left-sided infiltrate. Bony windows show no acute findings. Visualized portions of the upper abdomen demonstrate benign-appearing cysts in the right lobe of the liver. IMPRESSION: Dense consolidation in the right lower lobe compatible with pneumonia. There is a small amount of pleural fluid in the right side which is not overtly loculated. There are no significant enlarged lymph nodes in the mediastinum. Left lung is clear. Incidental small cyst in the right lobe of the liver. Dictated by: Dictated on workstation # [id number]
[2017-07-20] MEDS: NICOTINE 21 MG (NICODERM) PATCH TD SCH (16:40)
[2017-07-20 17:06] LABS: BODY FLUID APPEARENCE SLT CLDY; BODY FLUID COLOR RED; BODY FLUID RBC COUNT 11500 /uL; BODY FLUID WBC TOTAL COUNT 988 /uL
[2017-07-20 17:22] VITALS: BP 135/82
[2017-07-20] MEDS ORDERED: NAPROXEN 250 MG (NAPROSYN) TABLET PO PRN (17:30)
[2017-07-20] MEDS ORDERED: MELATONIN 3 MG TABLET PO PRN (17:30)
[2017-07-20] MEDS ORDERED: RT-ALBUTEROL/IPRATROPIUM 3 ML (DUONEB) VIAL INH PRN (17:45)
[2017-07-20 17:55] LABS: BF OTHER CELLS 0 %; LYMPHOCYTES,BODY FLUID 78 %
--- NOTE | 2017-07-20 18:04 | OPERATIVE REPORT ---
DATE OF SERVICE: 07/20/2017 PREOPERATIVE DIAGNOSIS: Symptomatic right pleural effusion. POSTOPERATIVE DIAGNOSIS: Symptomatic right pleural effusion. PROCEDURE PERFORMED: Right ultrasound-guided thoracentesis. SURGEON: Toña Barrow DO. ANESTHESIA: Lidocaine 1%. ESTIMATED BLOOD LOSS: Minimal. COMPLICATIONS: None. INDICATIONS: The patient is a 56-year-old male, who had a recent admission with pneumonia. He has developed a right pleural effusion. He is having symptoms of shortness of air. He understands risks and benefits of procedure and wished to proceed with procedure. Consent was signed and in the chart. DESCRIPTION OF PROCEDURE: The patient was taken to the procedure room. He was prepped and draped in a sterile fashion. Timeout was performed. Ultrasound was used to locate the most appropriate pocket for the right thoracentesis. Once this was located, local anesthetic was infiltrated into the area. A total of 3 mL of 1% lidocaine was used to anesthetize the area. The 11 blade scalpel was used to make a small skin incision and the Safe-T thoracentesis needle and catheter were then advanced until pleural fluid was returned. The catheter was then advanced and the fluid was drained. A total of 1700 mL of a dark ian fluid was returned. Once all the fluid was removed, the catheter was removed and sterile bandage was applied. The patient tolerated procedure well without any complications and taken back to his room in stable condition. Job ID: [id number] DocumentID: [id number] Dictated Date: 07/20/2017 16:04:34 Janitorial Supervisor Date: 07/20/2017 18:03:48 Dictated By: TOÑA BARROW DO
[2017-07-20] MEDS ORDERED: BENZONATATE 100 MG (TESSALON) CAPSULE PO PRN (18:15)
[2017-07-20] MEDS ORDERED: LEVOFLOXACIN 750 MG/150 ML IV 150 ML IV SCH (18:15)
[2017-07-20] MEDS: RT-ALBUTEROL/IPRATROPIUM 3 ML (DUONEB) VIAL INH SCH (19:20)
[2017-07-20 19:49] VITALS: BP 126/80
[2017-07-20] MEDS ORDERED: traZODone 50 MG (DESYREL) TAB PO SCH (21:00)
[2017-07-20] MEDS: CEFEPIME INJECTION 2,000 MG in NS (IVPB) 100 ML IV SCH (21:13)
[2017-07-20 23:46] VITALS: BP 111/72
[2017-07-21 03:42] VITALS: BP 135/78
[2017-07-21 06:29] LABS: BASOPHILS # (AUTO) 0.1 10^3/uL (0.0-0.1); BASOPHILS % (AUTO) 1 % (0-10); EOSINOPHILS # (AUTO) 0.5 10^3/uL (0.0-0.3); EOSINOPHILS % (AUTO) 5 % (0-10); HEMATOCRIT 40 % (40-54); HEMOGLOBIN 13.1 G/DL (13.3-17.7); LYMPHOCYTES # (AUTO) 2.6 X 10^3 (1.0-4.0); LYMPHOCYTES % (AUTO) 25 % (12-44); MEAN CORPUSCULAR HEMOGLOBIN 29 PG (25-34); MEAN CORPUSCULAR HGB CONC 33 G/DL (32-36); MEAN CORPUSCULAR VOLUME 89 FL (80-99); MEAN PLATELET VOLUME 8.9 FL (7.4-10.4); MONOCYTES # (AUTO) 0.9 X 10^3 (0.0-1.0); MONOCYTES % (AUTO) 8 % (0-12); NEUTROPHILS # (AUTO) 6.5 X 10^3 (1.8-7.8); NEUTROPHILS % (AUTO) 62 % (42-75); PLATELET COUNT 508 10^3/uL (130-400); RED CELL DISTRIBUTION WIDTH 14.7 % (10.0-14.5); WHITE BLOOD COUNT 10.5 10^3/uL (4.3-11.0)
[2017-07-21] MEDS: CEFEPIME INJECTION 2,000 MG in NS (IVPB) 100 ML IV SCH ×2 (06:32→13:46)
[2017-07-21 06:51] LABS: BUN/CREATININE RATIO 15; CARBON DIOXIDE 23 MMOL/L (21-32); CHLORIDE 108 MMOL/L (98-107); CREATININE SERUM 0.88 MG/DL (0.60-1.30); GFR ESTIMATED > 60; GLUCOSE 133 MG/DL (70-105); POTASSIUM 4.5 MMOL/L (3.6-5.0); SODIUM 138 MMOL/L (135-145)
[2017-07-21] MEDS: RT-ALBUTEROL/IPRATROPIUM 3 ML (DUONEB) VIAL INH SCH ×2 (07:10→11:20)
[2017-07-21 08:00] VITALS: BP 133/79
--- NOTE | 2017-07-21 08:04 | Diagnostic Imaging Report ---
INDICATION: Pleural effusion. COMPARISON: 07/20/2017. FINDINGS: Upright portable view of the chest is obtained. There is persistent pleural fluid at the right lung base with a subpulmonic component. This appears minimally increased from the prior study. The left lung appears clear. IMPRESSION: Suspected persistent right pleural effusion appears fairly similar, perhaps minimally worse when compared to the recent prior study. No new abnormality is seen. Dictated by: Dictated on workstation # [id number]
--- NOTE | 2017-07-21 08:23 | History & Physicial ([facility]) ---
HPI History of Present Illness: 56 year old male presented to clinic yesterday for follow up with worsening shortness of breath; CXR obtained earlier at [facility], [place] showed moderate pleural effusion. Patient reports that he is unable to take more than a few steps without gasping for breath. Patient is a known heavy smoker, and was recently hospitalized for PNA. He completed that course of treatment, but had questionable resolution on CXR and was started on azithromycin and an oral cephalosporin about 2 days ago. Then, as noted above, a repeat CXR showed pleural effusion. He had decreased breath sounds in the office, but was able to maintain his oxygenation on room air. He was sent to the hospital for direct placement into observation for further evaluation of his pleural effusion and evaluation by surgery for possible thoracentesis to drain if felt appropriate by surgery. Source: patient, family, RN/MD, old records Exam Limitations: no limitations Date seen by provider: Jul 21, 2017 Time Seen by Provider: 14:00 Attending Physician Lindsay Oconnell DO PCP Consuelo Conley DO Consult Date of Admission Jul 20, 2017 at 12:32 Home Medications Home Medications Reviewed patient Home Medication Reconciliation performed by pharmacy medication reconciliations sound effects technician and/or nursing. Patients Allergies have been reviewed. Allergies Coded Allergies: No Known Drug Allergies (Unverified , 12/25/12) NRF-[id number] Hx Patient Social History Marrital Status: cohabiting Living Status: lives with significant other and six children Employed/Student: employed Alcohol Use: Occasionally Uses Recreational Drug Use: Yes Drug of Choice: MARIJUANA ONCE IN A GREAT WHILE Smoking Status: Current Everyday Smoker Cigaretts per day: 40 Type Used: Cigarettes 2nd Hand Smoke Exposure: Yes Recent Foreign Travel: No Contact w/other who traveled: No Recent Hopitalizations: Yes Recent Infectious Disease Expo: No Physical Abuse Screen: No Sexual Abuse: No Immunizations Up To Date Tetanus Booster (TDap): Unknown Past Medical History Tobacco Abuse COPD by history Excessive Anger Impulse Control Disorder Family Medical History Family History: Cardiovascular disease 19 FATHER Respiratory disorder G8 SISTER Review of Systems ([facility]) Constitutional: see HPI, No chills, No dizziness, No fever EENTM: no symptoms reported Respiratory: see HPI, cough, dyspnea on exertion, orthopnea, short of breath Cardiovascular: no symptoms reported, No chest pain, No edema, No Hx of Intervention, No palpitations Gastrointestinal: no symptoms reported Genitourinary: no symptoms reported Musculoskeletal: no symptoms reported Skin: no symptoms reported Psychiatric/Neurological: No Symptoms Reported Reviewed Test Results Reviewed Test Results Radiology Date of Exam: 07/21/17 CHEST 1 VIEW, AP/PA ONLY INDICATION: Pleural effusion. COMPARISON: 07/20/2017. FINDINGS: Upright portable view of the chest is obtained. There is persistent pleural fluid at the right lung base with a subpulmonic component. This appears minimally increased from the prior study. The left lung appears clear. IMPRESSION: Suspected persistent right pleural effusion appears fairly similar, perhaps minimally worse when compared to the recent prior study. No new abnormality is seen. Physical Exam-([facility]) Physical Exam Vital Signs Capillary Refill : General Appearance: WD/WN, no apparent distress Eyes: Bilateral Eye Normal Inspection, Bilateral Eye PERRL, Bilateral Eye EOMI HEENT: normal ENT inspection, pharynx normal, No scleral icterus (R), No scleral icterus (L), No photophobia Neck: No non-tender, No full range of motion, No supple, No normal inspection Respiratory: No chest non-tender, No no respiratory distress, No no accessory muscle use, wheezing (diminished in bases with scattered wheezing) Cardiovascular: normal peripheral pulses, regular rate, rhythm, no edema, no gallop Gastrointestinal: normal bowel sounds, non tender, soft, no organomegaly, no pulsatile mass Rectal: deferred Back: normal inspection, no CVA tenderness, no vertebral tenderness Extremities: normal range of motion, non-tender, normal inspection, no pedal edema, no calf tenderness 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 Barrow yesterday, which he tolerated well and the fluid has been sent for cytology studies. He was found to have a PNA on CT scan and started on abx for HCAP, as he was just in the hospital about 2 weeks ago for PNA. Today the patient reports that he is feeling much better, his breathing has improved and he is anxious to go home. He does have a significantly elevated CRP, but his labs are otherwise fairly unremarkable. He has remained afebrile. We will discharge him on antibiotics and the remaining 4 days of a 5 day steroid burst, and have him follow up with Kae Singh APRN in the clinic next week before he can be cleared to go back to work. Quite a bit of time was spent discussing with the patient and his significant other that it is extremely important that he stop smoking, and that if they both stop smoking that would be most ideal. The patient states he realizes that this is true, and he will speak with Kae Singh APRN about Chantix or other medications to help with smoking cessation. Clinical Quality Measures DVT/VTE Risk/Contraindication: Risk Factor Score Per Nursin RFS Level Per Nursing on Admit: 2=Moderate Copy Copies To 1: [facility]/LINDSAY FIGUEROA DO Jul 21, 2017 08:23
[2017-07-21] MEDS ORDERED: predniSONE 20 MG TAB PO SCH (09:00)
[2017-07-21] MEDS ORDERED: NICOTINE PATCH REMOVAL TP SCH (09:00)
[2017-07-21] MEDS: NICOTINE 21 MG (NICODERM) PATCH TD SCH (10:41)
[2017-07-21] MEDS ORDERED: LEVOFLOXACIN 750 MG TAB (LEVAQUIN) PO SCH (11:00)
[2017-07-21 12:00] VITALS: BP 124/76
[2017-07-21] MEDS ORDERED: RANI150T15 PO (12:49)
--- NOTE | 2017-07-21 14:59 | Discharge Summary ---
Diagnosis/Chief Complaint Date of Admission Jul 20, 2017 at 12:32 Date of Discharge 07/21/17 Admission Diagnosis Admission Diagnosis Pleural Effusion PNA Dyspnea Tobacco Abuse Discharge Diagnosis Pleural Effusion PNA Dyspnea Tobacco Abuse Patient was placed in observation directly from clinic; he had 1700 cc drained from his chest via thoracentesis by Dr. Barrow yesterday, which he tolerated well and the fluid has been sent for cytology studies. He was found to have a PNA on CT scan and started on abx for HCAP, as he was just in the hospital about 2 weeks ago for PNA. Today the patient reports that he is feeling much better, his breathing has improved and he is anxious to go home. He does have a significantly elevated CRP, but his labs are otherwise fairly unremarkable. He has remained afebrile. We will discharge him on antibiotics and the remaining 4 days of a 5 day steroid burst, and have him follow up with Kae Singh APRN in the clinic next week before he can be cleared to go back to work. Quite a bit of time was spent discussing with the patient and his significant other that it is extremely important that he stop smoking, and that if they both stop smoking that would be most ideal. The patient states he realizes that this is true, and he will speak with Kae Singh APRN about Chantix or other medications to help with smoking cessation. Chief Complaint/HPI Chief Complaint/HPI 56 year old male presented to clinic yesterday for follow up with worsening shortness of breath; CXR obtained earlier at [facility] showed moderate pleural effusion. Patient reports that he is unable to take more than a few steps without gasping for breath. Patient is a known heavy smoker, and was recently hospitalized for PNA. He completed that course of treatment, but had questionable resolution on CXR and was started on azithromycin and an oral cephalosporin about 2 days ago. Then, as noted above, a repeat CXR showed pleural effusion. He had decreased breath sounds in the office, but was able to maintain his oxygenation on room air. He was sent to the hospital for direct placement into observation for further evaluation of his pleural effusion and evaluation by surgery for possible thoracentesis to drain if felt appropriate by surgery. Discharge Summary-OBS Procedures None. Consultations Discharge Physical Examination Allergies: Coded Allergies: No Known Drug Allergies (Unverified , 12/25/12) Vitals & I&Os Intake and Output 07/21/17 00:00 Intake Total 1230 ml Output Total 0 ml Balance 1230 ml Vital Sign - Last 12Hours Date Time Temp Pulse Resp B/P (MAP) Pulse Ox O2 Delivery O2 Flow Rate FiO2 07/21/17 12:00 95.9 104 18 124/76 (92) 96 Room Air 07/20/17 17:22 95 General Appearance: Alert, Oriented X3, Cooperative, No Acute Distress HEENT: Atraumatic, PERRLA, EOMI, Mucous Memb Moist/[place] Respiratory: Other (mildly diminished in bases, scattered wheezing) Cardiovascular: Regular Rate, Normal S1, Normal S2 Abdominal: Normal Bowel Sounds, Soft, No Tenderness, No Hepatosplenomegaly Extremities: No Clubbing, No Cyanosis, No Edema Skin: No Rashes, No Significant Lesion Neuro: Normal Gait, Normal Speech, Normal Tone, Sensation Intact, Cranial Nerves 3-12 NL Psych/Mental Status: Mental Status NL, Mood NL Hospital Course see final discharge diagnosis Labs Bad table Discharge Condition at discharge stable Instructions to patient/family Please see electronic discharge instructions given to patient. Discharge Medications Reviewed and agree with Discharge Medication list on patient's Discharge Instruction sheet Clinical Quality Measures DVT/VTE Risk/Contraindication: Risk Factor Score Per Nursin RFS Level Per Nursing on Admit: 2=Moderate Copy Copies To 1: [facility]/YOLANDE FIGUEROA DO Jul 21, 2017 14:59
[2017-07-21] MEDS ORDERED: LEVO750T39 PO (15:06)
[2017-07-21] MEDS ORDERED: PRD20T PO (15:06)
[2017-07-21] MEDS ORDERED: IPRA3AMP NEB (15:06)
--- NOTE | 2017-07-21 15:15 | Discharge Instructions ---
Discharge [facility] Discharge Medications New, Converted or Re-Newed RX: Transmitted to Pharmacy New Medications: Levofloxacin (Levofloxacin) 750 Mg Tablet 750 MG PO DAILY@1100 for 6 Days, #6 TAB Prednisone (Prednisone) 20 Mg Tab 40 MG PO DAILY for 4 Days, #4 TAB Continued Medications: Ipratropium/Albuterol Sulfate (Iprat-Albut 0.5-3(2.5) mg/3 ml) 3 Ml Ampul.neb 3 ML NEB QID for 30 Days, #2 EA (This prescription has been renewed) Melatonin (Melatonin) 5 Mg Capsule 5 MG PO HS PRN for SLEEP, CAP Naproxen Sodium (Aleve) 220 Mg Tablet 440 MG PO Q8H PRN for PAIN-MILD, TAB Ranitidine HCl (Zantac) 150 Mg Tablet 150 MG PO DAILY PRN for HEARTBURN, TAB Trazodone HCl (Trazodone HCl) 50 Mg Tablet 50 MG PO HS, TAB Discontinued Medications: Azithromycin (Azithromycin) 250 Mg Tablet 250 MG PO UD for 5 Days, #6 TAB TAKE 2 TABLETS ON DAY ONE THEN TAKE 1 TABLET DAILY FOR FOUR MORE DAYS FILLED 07-18-17 Cefpodoxime Proxetil (Cefpodoxime Proxetil) 200 Mg Tablet 200 MG PO Q12H for 14 Days, TAB 14 DAY THERAPY FILLED 07-18-17 Patient Instructions Patient Instructions -stop smoking -take medication as prescribed -keep follow up appts Goal/Follow Up Appt: Theodore Singh APRN, 07/27 at 1 PM Return to The Hospital For: chest pain or pressure, worsening shortness of breath, nausea or vomiting that makes you unable to keep down clear liquids for more than 12 hours, temp over 101 unrelieved by tylenol Activity & Diet Discharge Diet: No Restrictions Activity as Tolerated: Yes Copy Copies To 1: [facility]/YOLANDE FIGUEROA DO Jul 21, 2017 15:06
--- NOTE | 2017-07-21 20:36 | Progress Note ---
Subjective Date Seen by Provider: Jul 21, 2017 Time Seen by Provider: 09:00 Subjective/Events-last exam Patient states breathing much easier today since having thoracentesis. Wanting to go home. Has been going outside this morning smoking multiple times. Denies any new issues. No nausea vomiting fever sweats chills shortness of breath or chest pain. Focused Exam Evaluation Lactate Level Laboratory Tests 07/20/17 13:45: Lactic Acid Level 0.80 Objective Exam Vital Signs Date Time Temp Pulse Resp B/P (MAP) Pulse Ox O2 Delivery O2 Flow Rate FiO2 07/21/17 15:25 07/21/17 12:00 95.9 104 18 124/76 (92) 96 Room Air 07/21/17 11:20 Room Air 07/21/17 08:42 Room Air 07/21/17 08:00 98.7 112 18 133/79 (97) 96 Room Air 07/21/17 07:10 94 Room Air 07/21/17 03:42 96.8 93 16 135/78 (97) 93 Room Air 07/20/17 23:46 97.0 102 20 111/72 (85) 94 Room Air 07/20/17 21:00 Room Air I & O 07/21/17 07:00 Intake Total 1430 ml Output Total 0 ml Balance 1430 ml Capillary Refill : General Appearance: No Apparent Distress HEENT: PERRL/EOMI Neck: Normal Inspection Respiratory: No Accessory Muscle Use, No Respiratory Distress, Other (slightly decreased on right) Cardiovascular: Regular Rate, Rhythm Gastrointestinal: non tender, soft, no organomegaly Extremity: Normal Range of Motion, Non Tender Neurologic/Psychiatric: Alert, Oriented x3, No Motor/Sensory Deficits, Normal 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, 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 Norm as Tested Skin: Normal Color, Warm/Dry Results Lab Laboratory Tests 07/21/17 06:04: White Blood Count 10.5, Red Blood Count 4.50, Hemoglobin 13.1L, Hematocrit 40, Mean Corpuscular Volume 89, Mean Corpuscular Hemoglobin 29, Mean Corpuscular Hemoglobin Concent 33, Red Cell Distribution Width 14.7H, Platelet Count 508H, Mean Platelet Volume 8.9, Neutrophils (%) (Auto) 62, Lymphocytes (%) (Auto) 25, Monocytes (%) (Auto) 8, Eosinophils (%) (Auto) 5, Basophils (%) (Auto) 1, Neutrophils # (Auto) 6.5, Lymphocytes # (Auto) 2.6, Monocytes # (Auto) 0.9, Eosinophils # (Auto) 0.5H, Basophils # (Auto) 0.1, Sodium Level 138, Potassium Level 4.5, Chloride Level 108H, Carbon Dioxide Level 23, Anion Gap 7, Blood Urea Nitrogen 13, Creatinine 0.88, Estimat Glomerular Filtration Rate > 60, BUN/ Creatinine Ratio 15, Glucose Level 133H, Calcium Level 9.0 Microbiology 07/20/17 Blood Culture - Preliminary, Resulted No growth 07/20/17 Gram Stain - Final, Resulted 07/20/17 Body Fluid Culture - Preliminary, Resulted No growth Assessment/Plan Assessment/Plan Assessment/Plan symptomatic right pleural effusion s/p right thoracentesis shortness of air-improved history of pneumonia tobaccoism chest x ray minimal effusion on right may need thoracentesis in future but could be followed outpatient needs follow up on cytology discussed smoking cessation Clinical Quality Measures DVT/VTE Risk/Contraindication: Risk Factor Score Per Nursin RFS Level Per Nursing on Admit: 2=Moderate TOÑA TEE DO Jul 21, 2017 20:36
--- NOTE | 2017-07-24 11:06 | Physician Query-Final Dx ---
URSULA COLES 07/24/17 1106: Final Diagnosis Give Final Diagnosis Please give Final Diagnosis YOLANDE MCKEON DO 07/26/17 1530: Final Diagnosis Give Final Diagnosis Pleural Effusion PNA, Healthcare Acquired Dyspnea Tobacco Abuse URSULA COLES Jul 24, 2017 11:06 YOLANDE MCKEON DO Jul 26, 2017 15:30
== END 2017-07-21 15:06 | disposition home or self-care (01) ==
LOC: UNDOADMOB 12:32 → 4TH 12:32 → UNDODISOB 07-21 15:25
PROVIDERS: ADMIT Family Medicine; ATTEND Family Medicine
DX: J90 Pleural effusion, not elsewhere classified (principal); J18.9 Pneumonia, unspecified organism; R06.00 Dyspnea, unspecified; F17.210 Nicotine dependence, cigarettes, uncomplicated
CPT/HCPCS: 32555; 36415; 71045; 71270; 76942; 80048; 80053; 82570; 82945; 83605; 83615; 83735; 83880; 84157; 85025; 85610; 86141; 87040; 87070; 87075; 87101; 87205; 89051; 94640; 94760; 99211; G0378

== ENCOUNTER → 2019-03-11 | Outpatient (CLI) | payer OTHER ==
[~2019-03-11] MED LIST changes: -IPRA3AMP INH; +IPRA3AMP31 INH; +IPRA3AMP31 NEB; +LEVO750T39 PO; +RANI-613 PO; +RT-ALBUTEROL SULF 2.5 MG/3 ML PRE-MIX VIAL INH ONE; +RT-ALBUTEROL SULF 2.5 MG/3 ML PRE-MIX VIAL ONE; +TRAZ-222 PO
== END ==
LOC: RT 13:57
PROVIDERS: ATTEND Physical Medicine & Rehabilitation
DX: Z02.71 Encounter for disability determination (principal)
CPT/HCPCS: 94060; 94726; 94729